=== PATIENT | female | born 1995 | race American Indian/Alaskan Native ===

== ENCOUNTER 2016-10-04 13:17 | Inpatient (IN) | payer MEDICAID ==
[2016-10-04 13:42] VITALS: BMI 25.9
[2016-10-04] MEDS ORDERED: Penicillin G 5 Million Unit Vial IVPB ONE ×2 (13:52→14:11)
[2016-10-04] MEDS ORDERED: Lactated Ringer's 1,000 ML IV SCH (14:00)
[2016-10-04 14:26] LABS: BASO # 0.1 K/uL (0.0-0.2); BASO % 0.7 % (0.0-2.0); EOS # 0.1 K/uL (0.0-0.7); EOS % 1.2 % (0.0-4.0); HEMATOCRIT 29.8 % (34.0-47.0); LYMPH % 17.6 % (20.0-40.0); MEAN CORPUSCULAR HGB CONC 32.2 g/dL (33.0-37.0); MEAN PLATELET VOLUME 9.3 fL (7.2-11.7); MONO # 1.8 K/uL (0.0-0.8); MONO % 15.2 % (0.0-10.0); RED CELL DISTRIBUTION WIDTH 14.3 % (11.5-14.5); WHITE BLOOD COUNT 11.5 K/uL (4.8-10.8)
[2016-10-04 14:34] LABS: RBC URINE < 1 /hpf (0-3); URINE BACTERIA RARE (<OCC); URINE BILIRUBIN NEGATIVE (NEGATIVE); URINE BLOOD NEGATIVE (NEGATIVE); URINE COLOR Yellow (YELLOW); URINE GLUCOSE (UA) NORMAL (Normal); URINE KETONE NEGATIVE (NEGATIVE); URINE LEUKOCYTE ESTERASE TRACE Leu/uL (Negative); URINE PROTEIN NEGATIVE (NEGATIVE); URINE UROBILINOGEN NORMAL mg/dL (0.2-1.0); WBC URINE 1 /hpf (0-5)
[2016-10-04 14:38] LABS: CHLORIDE 101 mmol/L (98-107); POTASSIUM 3.8 mmol/L (3.6-5.2); SODIUM 134 mmol/L (132-148)
[2016-10-04 14:40] LABS: AST/SGOT 38 U/L (14-36); BILIRUBIN,TOTAL 0.7 mg/dL (0.2-1.3); CARBON DIOXIDE 20 mmol/L (22-30); GFR AFRICAN-AMERICAN > 60
[2016-10-04 14:41] LABS: ALB/GLOB RATIO 1.1 (1.0-2.1); ALKALINE PHOSPHATASE 115 U/L (38-126); BLOOD UREA NITROGEN 7 mg/dL (7-17); CALCIUM 8.8 mg/dl (8.6-10.4); GLUCOSE,RANDOM 77 mg/dL (65-105); TOTAL PROTEIN 7.2 g/dL (6.3-8.3)
[2016-10-04 14:42] LABS: ALT/SGPT < 6 U/L (9-52)
--- NOTE | 2016-10-04 15:35 | OBADHP ---
Datetime: 10/04/2016 13:49 Admit Comment, IP Provider: 21 yo P1233 . AMBROCIO 11/08/16, per patientt, EGA 35 weeks dago priv OB, Dr. David toribio, for apointment approximately 2 1/2 hours prior: examned and told to be "fingertip to 1 cm"; and to come in for evaluation. Patient then reports stronger Ctx approx 1230 hours, pain scale 8/10; decreased movement since office visit. GBS unknown; eval performed today in office. Denie s issues. Per, Dr. Jang: S/P 3 doses betamethasone at 31 weeks P Ob: x 3, all males: 2009, 40 weeks, 7lb 6oz; 2011, 32 wk, 4lb 11oz; 2011, 36 wk, 6lb 7oz; - all at [facility] – [place]. No other complications. 2007, [place] - S/P D_C only. VTOP x 2, no complication s. [employer]: 12 x monthly x 6. Denies STIs PMH: denies PSH: D_C x 3 NKDA Meds: PNV, iron - each, QD Soc Hx: denies tobacco, illicit drug or EtOH use. With FOB x 9 yrs, lives with him and children. Fam Hx: Mother alive 42. Father alive 45; both, no med issues. P.E.: as above. WD in pain with contractions. Awake, alert, oriented to time, person and place Assessment: 21 yo P1233, 35 weeks, h/o delivery x 2. GBS unk. Category 1 tracing. Clinical ly stable. Plan: 1) Admit 2) NPO 3) IVFS 4) penicillin G 5) continuous EFM 6) Admission labs, incl 3rd trimestre labs 7) Anticiapte vaginal delivery - Dr. Jang notified Pelvic Type - PN: Adequate Extremities - PN: Normal Abdomen - PN: Normal Back - PN: Normal Breast - PN: Not Done Lungs - PN: Normal Heart - PN: Normal Thyroid - PN: Not Done Neurologic - PN: Normal HEENT - PN: Normal General - PN: Normal Presentation-Admit: Vertex FHR - Baseline A Provider: 160 Membranes, Provider: Intact Contraction Comments Provider: 1-2 Comments, ACOG Physical Exam: Skin: warm, dry, intact Abdomen: Gravid; Very firm with contractions. Fundal height 36 cm All other systems reviewed and are negative Gestation - Est Wks by US: 35.0 IP Hx Assessment: The History has been Reviewed and is Current Vital Signs Provider: Reviewed IP Chief Complaint: Uterine contractions NICHD Variability Prov Fetus A: Moderate 6-25bpm NICHD Accel Fetus A IP Provider: 15X15 FHR Category Provider Fetus A: Category I NICHD Decel Fetus A IP Provider: None Dilatation, Provider: 2 Effacement, Provider: 30 Station, Provider: -3 Genitourinary Exam: Normal DTRs - PN: Not Done EGA AdmitDate IP: 35.0 IP Adm Impression: , intrauterine ; Intact Membranes IP Admit Plan: Admit to unit; Initiate labor protocol
--- NOTE | 2016-10-04 15:40 | OBPN ---
Datetime: 10/04/2016 14:42 IP Progress Plan: Continue present management; Antibiotic therapy; Anticipate Vaginal Delivery Membranes, Provider: Intact Contraction Comments Provider: iregularly, 1-3 min FHR - Baseline A Provider: 155 Gestation - Est Wks by US: 35.0 IP Progress Note Comment: Patient reports not feeling any better; contractions still every 1-2 minut es V.E. as above. Assessment: 21 yo P1233, 35 weeks. threatened PTL - has made cervical change. Category 1 tracing. S/P 1 dose penicillin. Clinically stable. Plan: 1) Continue present management 2) Peds is aware - Dr. Jang informed. NICHD Accel Fetus A IP Provider: 10X10 FHR Category Provider Fetus A: Category I NICHD Variability Prov Fetus A: Moderate 6-25bpm Dilatation, Provider: 3-4 Effacement, Provider: 40 Station, Provider: -2 NICHD Decel Fetus A IP Provider: None Datetime: 10/04/2016 13:49 Presentation-Admit: Vertex Vital Signs Provider: Reviewed
--- NOTE | 2016-10-04 16:14 | OBADHP ---
Datetime: 10/04/2016 16:10 Pelvic Type - PN: Adequate Extremities - PN: Normal Abdomen - PN: Normal Back - PN: Normal Breast - PN: Not Done Lungs - PN: Normal Heart - PN: Normal Thyroid - PN: Not Done Neurologic - PN: Not Done HEENT - PN: Not Done General - PN: Normal Weight - Estimated: 2400 Presentation-Admit: Vertex FHR - Baseline A Provider: 140 Membranes, Provider: Intact Contraction Comments Provider: Q 2min. Gestation - Est Wks by US: 35.0 Vital Signs Provider: Reviewed; Within Normal Limits IP Chief Complaint: Uterine contractions NICHD Variability Prov Fetus A: Moderate 6-25bpm NICHD Accel Fetus A IP Provider: 15X15 FHR Category Provider Fetus A: Category I NICHD Decel Fetus A IP Provider: None Dilatation, Provider: 3 Effacement, Provider: 60 Station, Provider: -2 Genitourinary Exam: Normal DTRs - PN: Normal EGA AdmitDate IP: 35.0 IP Adm Impression: , intrauterine ; Active labor IP Admit Plan: Admit to unit; Initiate labor protocol
[2016-10-04] MEDS ORDERED: Nalbuphine 20 mg/ml Inj (1 ml) IVP PRN (16:30)
--- NOTE | 2016-10-04 18:49 | OBPN ---
Datetime: 10/04/2016 18:43 IP Progress Plan Other: Expectant Management IP Progress Impression: Reassuring heart rate IP Informed Consent Obtain: Vaginal Delivery; Risks, Benefits and Alternatives Discussed IP Procedures: Sterile Vag Exam IP Progress Plan: Continue present management; Antibiotic therapy Membranes, Provider: Intact Contraction Comments Provider: irreg FHR - Baseline A Provider: 140 Gestation - Est Wks by US: 35.0 Weight - Estimated: 2400 Presentation-Admit: Vertex IP Progress Note Comment: Labor. Expectant Management. Vital Signs Provider: Reviewed; Within Normal Limits NICHD Accel Fetus A IP Provider: 15X15 FHR Category Provider Fetus A: Category I NICHD Variability Prov Fetus A: Moderate 6-25bpm Dilatation, Provider: 3-4 Effacement, Provider: 70 Station, Provider: -2 NICHD Decel Fetus A IP Provider: None
[2016-10-04] MEDS: Lactated Ringer's 1,000 ML IV SCH (23:30)
[2016-10-04] MEDS ORDERED: Bupivacaine 0.125%/FentaNYL 200 ML EPI ONE (23:40)
[2016-10-04] MEDS ORDERED: Bupivacaine 0.25% Inj(30mL) ONE (23:46)
[2016-10-05] MEDS ORDERED: Nalbuphine 20 mg/ml Inj (1 ml) ONE (00:17)
[2016-10-05] MEDS: Lactated Ringer's 1,000 ML IV SCH (04:00)
--- NOTE | 2016-10-05 06:20 | OBPN ---
Datetime: 10/05/2016 06:13 IP Progress Impression: Arrest of dilatation/descent; Reassuring heart rate IP Informed Consent Obtain: Vaginal Delivery; Risks, Benefits and Alternatives Discussed IP Procedures: Artificial ROM; Sterile Vag Exam IP Progress Plan: Augmentation; Anticipate Vaginal Delivery Membranes, Provider: Ruptured Amniotic Fluid Color, Provider: Clear Contraction Comments Provider: Q11 min. FHR - Baseline A Provider: 140 Gestation - Est Wks by US: 35.0 Weight - Estimated: 2400 Presentation-Admit: Vertex IP Progress Note Comment: Early Active Stage of Labor. Has Epidural. Reassuring Status . Augment Labor with Pitocin. Anticipate . Vital Signs Provider: Reviewed; Within Normal Limits NICHD Accel Fetus A IP Provider: 15X15 FHR Category Provider Fetus A: Category I NICHD Variability Prov Fetus A: Moderate 6-25bpm Dilatation, Provider: 4-5 Effacement, Provider: 70 Station, Provider: -2 NICHD Decel Fetus A IP Provider: None
[2016-10-05] MEDS ORDERED: Oxytocin 30 UNIT 30 UNITS/500 ML BAG IV SCH (06:30)
--- NOTE | 2016-10-05 07:53 | OBPN ---
Datetime: 10/05/2016 07:49 IP Progress Impression: Normal progression of labor; Reassuring heart rate IP Informed Consent Obtain: Vaginal Delivery; Risks, Benefits and Alternatives Discussed IP Procedures: Sterile Vag Exam IP Progress Plan: Continue present management; Augmentation Membranes, Provider: Ruptured FHR - Baseline A Provider: 150 Gestation - Est Wks by US: 35.0 Weight - Estimated: 2400 Presentation-Admit: Vertex IP Progress Note Comment: Active Labor. Anticipate NICHD Accel Fetus A IP Provider: 15X15 FHR Category Provider Fetus A: Category I NICHD Variability Prov Fetus A: Moderate 6-25bpm Dilatation, Provider: 5 Effacement, Provider: 80 Station, Provider: -1 NICHD Decel Fetus A IP Provider: None
--- NOTE | 2016-10-05 11:23 | OBDS ---
DELIVERY PERSONNEL Delivery Doctor: Billie Jang MD Aviation Safety Officer: Jorge Silva RN Anesthesiologist: DR ALEJANDRA MATERNAL INFORMATION Delivery Anesthesia: Epidural Provider Comments: to a viable girl, Zoe's 9/9. LABOR SUMMARY EDC: 11/13/2016 00:00 No. Babies in Womb: 1 LABOR INFORMATION Onset of Labor: 10/04/2016 12:30 Group B Beta Strep: Not Done MEMBRANES Membranes Rupture Method: Artificial Rupture of Membranes: 10/05/2016 06:08 Length of Rupture (hrs): 4.90 Amniotic Fluid Color: Clear Amniotic Fluid Amount: Moderate Amniotic Fluid Odor: Normal BABY A INFORMATION Delivery Date/Time: 10/05/2016 11:02 Method of Delivery: Vaginal Born in Route : No : N/A Forceps: N/A Vacuum Extraction: N/A Shoulder Dystocia : No SHOULDER DYSTOCIA BABY A Infant Delivery Date/Time: 10/05/2016 11:02 PRESENTATION/POSITION BABY A Presentation: Cephalic Cephalic Presentation: Vertex Vertex Position: Left Occipital Posterior INFANT INFORMATION BABY A Gestational Age at Delivery: 35.0 Gestational Status: Outcome : Liveborn Condition : Stable Sex: Female WEIGHT/LENGTH BABY A Infant Birthweight (gms): 2715 Weight (lb): 6 Weight (oz): 0 Infant Length Inches: 18.00 Infant Length cms: 45.7 CORD INFORMATION BABY A Nuchal Cord : N/A Cord Blood Taken: Yes Infant Suction: Mouth; Nose
--- NOTE | 2016-10-06 04:14 | OBPPN ---
Datetime: 10/06/2016 03:53 PP Pain Prov: Within normal limits PP Nausea Prov: Denies PP Flatus Prov: Yes PP BM Prov: Yes PP Breasts Prov: Normal PP Heart Prov: Normal PP Lungs Prov: Normal PP Abdomen/Uterus Prov: Normal PP Lochia Prov: Normal PP Vulva/Perineum Prov: Normal PP CVA Tenderness Prov: Normal PP Extremities Prov: Normal PP C/S Incision Prov: Not Applicable PP Progress Prov: Normal PP Comments Phys Exam Prov: UTERUS FIRM AND CONTRACTED. LOCHIA MINIMAL. PP Impression Prov: Normal progression PP Plan Prov: Continue present management PP Progress Note Prov: STABLE. ANTICIPATE DISCHARGE TOMORROW IP PP Procedures: None Vital Signs Provider PP: Reviewed; Within Normal Limits
[2016-10-06 08:21] VITALS: O2SAT 100
[2016-10-06 08:51] LABS: HEMATOCRIT 28.3 % (34.0-47.0)
[2016-10-06] MEDS ORDERED: Multiple Vitamins Tab PO SCH (10:00)
--- NOTE | 2016-10-07 09:42 | OBPPN ---
Datetime: 10/07/2016 09:38 PP Pain Prov: Within normal limits PP Nausea Prov: Denies PP Flatus Prov: Yes PP BM Prov: Yes PP Breasts Prov: Normal PP Heart Prov: Normal PP Lungs Prov: Normal PP Abdomen/Uterus Prov: Normal PP Lochia Prov: Normal PP Vulva/Perineum Prov: Normal PP CVA Tenderness Prov: Normal PP Extremities Prov: Normal PP C/S Incision Prov: Not Applicable PP Progress Prov: Normal PP Comments Phys Exam Prov: Uterus firm and contracted. Lochia minimal. PP Impression Prov: Normal progression PP Plan Prov: Discharge PP Progress Note Prov: Stable. Discharge home. Follow up 6 weeks. Vital Signs Provider PP: Reviewed; Within Normal Limits
[2016-10-07 16:44] VITALS: BP 102/64; PULSE 71; RESP 20; TEMP 97.6
--- NOTE | 2016-10-09 12:01 | OBDCSUM ---
Datetime: 10/07/2016 12:40 Discharge Instructions, Provider: Routine instructions given Discharge Diagnosis, Provider: Labor Contraception discussed, Prov: Yes Discharge Diagnosis Prov Other: 35 WEEKS gESTATION Contraception after Delivery: Undecided
== END 2016-10-07 16:40 | disposition home or self-care (01) | DRG 372 ==
LOC: C.EROB 13:17 → C.4D 13:39 → C.4M 10-05 13:15
PROVIDERS: ADMIT Obstetrics & Gynecology; ATTEND Obstetrics & Gynecology
PROC: 10E0XZZ Delivery of Products of Conception, External Approach (ICD-10-PCS; principal; 2016-10-05)
PROC: 10907ZC Drainage of Amniotic Fluid, Therapeutic from Products of Conception, Via Natural or Artificial Opening (ICD-10-PCS; 2016-10-05)
DX: O60.14X0 Preterm labor third trimester with preterm delivery third trimester, not applicable or unspecified (principal); O36.8190 Decreased fetal movements, unspecified trimester, not applicable or unspecified; Z37.0 Single live birth; Z3A.35 35 weeks gestation of pregnancy; O62.0 Primary inadequate contractions